=== PATIENT | female | born 1990 | race Caucasian/White ===

== ENCOUNTER 2023-02-07 16:49 | Outpatient (CLI) | payer BC, SELFPAY | END 2023-02-07 16:50 | disposition home or self-care (01) | PROVIDERS: PCP Internal Medicine; Visit Provider Internal Medicine | DX: M32.9 Systemic lupus erythematosus, unspecified (principal) | CPT/HCPCS: 80053; 80061 ==

== ENCOUNTER 2024-11-05 09:51 | Outpatient (CLI) | payer BC, SELFPAY | END 2024-11-05 09:52 | disposition home or self-care (01) | LOC: NFLDREF 11-06 07:55 | PROVIDERS: PCP Internal Medicine; Referring Provider Internal Medicine; Visit Provider Internal Medicine | DX: E78.5 Hyperlipidemia, unspecified (principal) | CPT/HCPCS: 80053; 80061 ==